=== PATIENT | female | born 1980 | race Caucasian/White ===

== ENCOUNTER 2017-09-10 17:02 | Emergency (ER) | payer OTHER ==
[2017-09-10 19:30] LABS: Urine Blood NEGATIVE (NEG); Urine Glucose NEGATIVE (NEG); Urine Protein NEGATIVE (NEG); Urine pH 7.5 (5.0-7.0)
[2017-09-10] MEDS ORDERED: NA CHLORIDE 0.9% 1,000 ML ONE (19:32)
[2017-09-10] MEDS ORDERED: FENTANYL CITR 100 MCG/2 ML ONE ×2 (19:32→20:53)
[2017-09-10 19:36] LABS: Absolute Lymphocytes (CBC) 2.4 K/uL (0.7-4.9); Absolute Monocytes 0.4 K/uL (0.1-1.3); Absolute Neutrophil 5.1 K/uL (1.8-8.0); Basophils % 0.5 % (0-1.3); Eosinophils % 2.7 % (0-4.4); Hematocrit 38.9 % (36.0-45.0); Lymphocytes % 29.2 % (15.3-44.8); MCH 31.6 pg (27.0-35.0); MCV 90.1 fL (80-100); MPV 10.2 fL (7.6-11.3); Monocytes % 5.2 % (3.3-12.3); RBC Red Blood Cell Count 4.31 M/uL (3.86-4.86)
[2017-09-10 19:41] LABS: Urine Bacteria <20 /HPF (<20); Urine RBC <5 /HPF (NONE SEEN)
[2017-09-10 19:42] LABS: Urine Culture Reflex Order NOT NEEDED
[2017-09-10 19:44] LABS: Potassium 3.4 mEq/L (3.6-5.0)
[2017-09-10 19:50] LABS: Albumin 4.9 g/dL (3.2-5.5); Bilirubin Direct 0.1 mg/dL (0-0.2); Bilirubin Total 1.1 mg/dL (0.3-1.2); Protein, Total 7.9 g/dL (6.0-8.3)
--- NOTE | 2017-09-10 20:24 | RAD REPORT ---
EXAM DESCRIPTION: US - Abdomen Exam Limited - 09/10/2017 7:43 pm CLINICAL HISTORY: Right upper quadrant pain COMPARISON: November 2014 FINDINGS: No gallstones, sludge or other abnormalities within the gallbladder lumen. There is no wal l thickening or pericholecystic fluid. No common duct stone or biliary tree dilatation identified. IMPRESSION: Normal gallbladder and biliary tree ultrasound.
--- NOTE | 2017-09-10 21:07 | RAD REPORT ---
EXAM DESCRIPTION: CT - Stone Protocol - 09/10/2017 8:45 pm CLINICAL HISTORY: Right-sided abdominal pain, right upper quadrant pain COMPARISON: None. TECHNIQUE: Axial 5 mm thick images were obtained without oral or IV contrast. The [id number] span s the entirety of the system including uppermost abdomen and lung bases. All CT scans are performed using dose optimization technique as appropriate and may include automated exposure control or mA/KV adjustment according to patient size. FINDINGS: No hydronephrosis is present and no obstructing ureteral calculi. No suspicious renal mass es. Isodense masses and pyelonephritis are not excluded on a stone protocol CT scan. No urinary bladd er suspicious finding. Uterus and ovaries show no suspicious findings. A 2 centimeter right ovarian c yst is present not regarded as significant. Imaged portions of the liver, spleen and pancreas show no suspicious findings on non-contrast imaging . No gallbladder or biliary tree abnormality identified. Gallstones can be occult. No adrenal abnorma lity. No suspicious bowel findings. No appendicitis. No mass or bulky lymphadenopathy. A small fat only umbilical hernia present. No free air, free fluid or inflammatory stranding. No significant bony abnormality. IMPRESSION: Noncontrast CT abdomen and pelvis examination shows no significant or suspicious finding . Isodense masses and pyelonephritis are not excluded on stone protocol technique.Gallstones can also b e occult on CT imaging.
--- NOTE | 2017-09-10 21:13 | ER ---
Nurse's Notes [facility] Name: Fidel Ochoa Age: 37 yrs Sex: Female : 1980 Arrival Date: 09/10/2017 Time: 17:03 Bed 20 Private MD: Diagnosis: Lower abdominal pain, unspecified;Other ovarian cysts Presentation: 09/10 17:39 Presenting complaint: Patient states: Intermittent dull RUQ pain x 1 month, over last 2 hb days pain has become constant. Also c/o nausea since noon today. Transition of care: patient was not received from another setting of care. Onset of symptoms is unknown. Initial Sepsis Screen: Does the patient meet any 2 criteria? No. Patient's initial sepsis screen is negative. Does the patient have a suspected source of infection? No. Patient's initial sepsis screen is negative. Care prior to arrival: Tylenol at 1530. 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 - Social history:: Smoking status: Patient/guardian denies using tobacco. Screenin:55 Abuse screen: Denies threats or abuse. Nutritional screening: No deficits noted. tw2 Tuberculosis screening: No symptoms or risk factors identified. Fall Risk None identified. Assessment: 18:53 General: Appears uncomfortable, slender, well groomed, Behavior is calm, cooperative, tw2 appropriate for age. Pain: Complains of pain in right upper quadrant and right lower quadrant. Neuro: Level of Consciousness is awake, alert, obeys commands, Oriented to person, place, time, situation. Cardiovascular: Denies chest pain, shortness of breath, Heart tones S1 S2 Capillary refill < 3 seconds Patient's skin is warm and dry. Respiratory: Airway is patent Respiratory effort is even, unlabored, Respiratory pattern is regular, symmetrical, Breath sounds are clear bilaterally. GI: Abdomen is flat, Bowel sounds present X 4 quads. Abd is soft X 4 quads Reports lower abdominal pain, upper abdominal pain, intolerance of fluids, intolerance of food, nausea. : Reports pain in right flank(s). EENT: No signs and/or symptoms were reported regarding the EENT system. Derm: No signs and/or symptoms reported regarding the dermatologic system. Skin is intact, is healthy with good turgor, Skin temperature is warm. Musculoskeletal: Range of motion: intact in all extremities. 19:30 Reassessment: Patient appears in no apparent distress at this time. No changes from jd3 previously documented assessment. Patient and/or family updated on plan of care and expected duration. Pain level reassessed. Patient is alert, oriented x 3, equal unlabored respirations, skin warm/dry/pink. 20:30 Reassessment: Patient appears in no apparent distress at this time. No changes from jd3 previously documented assessment. Patient and/or family updated on plan of care and expected duration. Pain level reassessed. Patient is alert, oriented x 3, equal unlabored respirations, skin warm/dry/pink. 21:30 Reassessment: Patient appears in no apparent distress at this time. No changes from jd3 previously documented assessment. Patient and/or family updated on plan of care and expected duration. Pain level reassessed. Patient is alert, oriented x 3, equal unlabored respirations, skin warm/dry/pink. Vital Signs: 17:40 BP 120 / 82; Pulse 76; Resp 18; Temp 98.1; Pulse Ox 98% on R/A; Weight 65.32 kg; Height hb 5 ft. 6 in. (167.64 cm); Pain 8/10; 18:56 BP 119 / 78; Pulse 63; Resp 17; Pulse Ox 100% on R/A; tw2 19:30 BP 117 / 95; Pulse 65; Resp 17 S; Pulse Ox 100% on R/A; Pain 8/10; jd3 20:32 BP 127 / 95; Pulse 61; Resp 17 S; Pulse Ox 100% on R/A; Pain 8/10; jd3 21:33 BP 127 / 92; Pulse 61; Resp 17 S; Pulse Ox 100% on R/A; Pain 6/10; jd3 17:40 Body Mass Index 23.24 (65.32 kg, 167.64 cm) hb ED Course: 17:03 Patient arrived in ED. al2 17:40 Triage completed. hb 17:41 Arm band placed on right wrist. hb 18:29 Noemy Nunez FNP-C is PHCP. snw 18:29 Kee Wick MD is Attending Physician. snw 18:30 Bed in low position. Call light in reach. Pulse ox on. NIBP on. Warm blanket given. tw2 18:50 No provider procedures requiring assistance completed. Inserted saline lock: 22 gauge tw2 in right antecubital area, using aseptic technique. Blood collected. 18:51 Ling Denney RN is Primary Nurse. tw2 19:00 Report given to MIKE Noel. tw2 19:43 US Abdomen Limited In Process Unspecified. EDMS 20:45 CT Stone Protocol In Process Unspecified. EDMS 21:18 CT completed. Patient tolerated procedure well. Patient moved to CT via wheelchair. kw1 Patient moved back from CT. 21:47 IV discontinued, intact, bleeding controlled, No redness/swelling at site. Pressure jd3 dressing applied. Administered Medications: 19:52 Drug: NS 0.9% 1000 ml Route: IV; Rate: 125 ml/hr; Site: right antecubital; jd3 21:47 Follow up: Response: No adverse reaction; IV Status: Order to discontinue infusion; IV jd3 Intake: 300ml 19:52 Drug: fentaNYL (PF) 25 mcg Route: IVP; Site: right antecubital; jd3 20:55 Follow up: Response: No adverse reaction; Pain is unchanged, physician notified jd3 20:54 Drug: fentaNYL (PF) 25 mcg Route: IVP; Site: right antecubital; jd3 21:32 Follow up: Response: No adverse reaction; Pain is decreased jd3 21:31 Drug: TORadol 30 mg Route: IVP; Site: right antecubital; jd3 21:32 Follow up: Response: Medication administered at discharge. jd3 Intake: 21:47 IV: 300ml; Total: 300ml. jd3 Outcome: 21:12 Discharge ordered by . snw 21:45 Discharged to home ambulatory. jd3 21:45 Condition: stable 21:45 Discharge instructions given to patient, Instructed on discharge instructions, follow up and referral plans. medication usage, Demonstrated understanding of instructions, follow-up care, medications, Prescriptions given X 2. 21:48 Patient left the ED. jd3 Signatures: Dispatcher [employer] EDMN Noemy Nunez, FUNDS TRANSFER CLERK-C FUNDS TRANSFER CLERK-Csnw Jeanne Munoz RN RN Ling Denney RN RN tw2 Griffin Alexandra RN RN jd3 Smitha Jc1 Jackeline Ro Corrections: (The following items were deleted from the chart) 20:55 20:32 Pulse 61bpm; Resp 17bpm; Spontaneous; Pulse Ox 100% RA; Pain 12/07; jd3 jd3
--- NOTE | 2017-09-10 21:13 | EDPHYS ---
Physician Documentation [facility] Name: Fidel Ochoa Age: 37 yrs Sex: Female : 1980 Arrival Date: 09/10/2017 Time: 17:03 Bed 20 Private MD: ED Physician Kee Wick HPI: 09/10 19:20 This 37 yrs old Female presents to ER via Ambulatory with complaints of snw Abdominal Pain, Fever. 19:20 The patient presents with abdominal pain in the upper abdomen, in the right upper snw quadrant. Onset: The symptoms/episode began/occurred gradually, 1 month(s) ago, and became worse 2 day(s) ago, and became persistent. The symptoms do not radiate. Associated signs and symptoms: Pertinent positives: fever, nausea. The symptoms are described as constant. Severity of pain: At its worst the pain was moderate yesterday. The patient has not experienced similar symptoms in the past. appt for Wed at the [facility]. 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 - Social history:: Smoking status: Patient/guardian denies using tobacco. ROS: 19:19 Constitutional: Negative for fever, chills, and weight loss, Eyes: Negative for injury, snw pain, redness, and discharge, ENT: Negative for injury, pain, and discharge, Neck: Negative for injury, pain, and swelling, Cardiovascular: Negative for chest pain, palpitations, and edema, Respiratory: Negative for shortness of breath, cough, wheezing, and pleuritic chest pain, Back: Negative for injury and pain, : Negative for injury, bleeding, discharge, and swelling, MS/Extremity: Negative for injury and deformity, Skin: Negative for injury, rash, and discoloration, Neuro: Negative for headache, weakness, numbness, tingling, and seizure, Psych: Negative for depression, anxiety, suicide ideation, homicidal ideation, and hallucinations. 19:19 Abdomen/GI: Positive for abdominal pain, nausea. Exam: 19:18 Constitutional: This is a well developed, well nourished patient who is awake, alert, snw and in no acute distress. Head/Face: Normocephalic, atraumatic. Eyes: Pupils equal round and reactive to light, extra-ocular motions intact. Lids and lashes normal. Conjunctiva and sclera are non-icteric and not injected. Cornea within normal limits. Periorbital areas with no swelling, redness, or edema. ENT: Nares patent. No nasal discharge, no septal abnormalities noted. Tympanic membranes are normal and external auditory canals are clear. Oropharynx with no redness, swelling, or masses, exudates, or evidence of obstruction, uvula midline. Mucous membranes moist. Neck: Trachea midline, no thyromegaly or masses palpated, and no cervical lymphadenopathy. Supple, full range of motion without nuchal rigidity, or vertebral point tenderness. No Meningismus. Chest/axilla: Normal chest wall appearance and motion. Nontender with no deformity. No lesions are appreciated. Cardiovascular: Regular rate and rhythm with a normal S1 and S2. No gallops, murmurs, or rubs. Normal PMI, no JVD. No pulse deficits. Respiratory: Lungs have equal breath sounds bilaterally, clear to auscultation and percussion. No rales, rhonchi or wheezes noted. No increased work of breathing, no retractions or nasal flaring. Back: No spinal tenderness. No costovertebral tenderness. Full range of motion. Skin: Warm, dry with normal turgor. Normal color with no rashes, no lesions, and no evidence of cellulitis. MS/ Extremity: Pulses equal, no cyanosis. Neurovascular intact. Full, normal range of motion. Neuro: Awake and alert, GCS 15, oriented to person, place, time, and situation. Cranial nerves II-XII grossly intact. Motor strength 5/5 in all extremities. Sensory grossly intact. Cerebellar exam normal. Normal gait. Psych: Awake, alert, with orientation to person, place and time. Behavior, mood, and affect are within normal limits. 19:18 Abdomen/GI: Inspection: abdomen appears normal, Bowel sounds: normal, Palpation: moderate abdominal tenderness, severe abdominal tenderness, in the anterior aspect of right lateral abdomen and right upper quadrant. 19:20 Abdomen/GI: Indicators: Simpson's sign is positive. snw Vital Signs: 17:40 BP 120 / 82; Pulse 76; Resp 18; Temp 98.1; Pulse Ox 98% on R/A; Weight 65.32 kg; Height hb 5 ft. 6 in. (167.64 cm); Pain 8/10; 18:56 BP 119 / 78; Pulse 63; Resp 17; Pulse Ox 100% on R/A; tw2 19:30 BP 117 / 95; Pulse 65; Resp 17 S; Pulse Ox 100% on R/A; Pain 8/10; jd3 20:32 BP 127 / 95; Pulse 61; Resp 17 S; Pulse Ox 100% on R/A; Pain 8/10; jd3 21:33 BP 127 / 92; Pulse 61; Resp 17 S; Pulse Ox 100% on R/A; Pain 6/10; jd3 17:40 Body Mass Index 23.24 (65.32 kg, 167.64 cm) hb MDM: 18:51 Patient medically screened. snw 19:20 Data reviewed: vital signs, nurses notes. Data interpreted: Pulse oximetry: on room air snw is 100 %. Interpretation: normal. Counseling: I had a detailed discussion with the patient and/or guardian regarding: the historical points, exam findings, and any diagnostic results supporting the discharge/admit diagnosis, lab results, radiology results. 20:45 ED course: Pt to rad per WC for CT abd/pelvis. snw 09/10 18:32 Order name: Urine Culture snw 09/10 18:32 Order name: Urine Microscopic Only; Complete Time: 19:57 snw 09/10 19:18 Order name: Basic Metabolic Panel; Complete Time: 19:57 snw 09/10 19:18 Order name: CBC with Diff; Complete Time: 19:57 snw 09/10 19:18 Order name: Hepatic Function; Complete Time: 19:57 snw 09/10 19:18 Order name: Lipase; Complete Time: 19:57 snw 09/10 19:18 Order name: US Abdomen Limited; Complete Time: 20:25 snw 09/10 19:23 Order name: Urine Dipstick--Ancillary (enter results); Complete Time: 19:32 mt 09/10 19:23 Order name: Urine --Ancillary (enter results); Complete Time: 19:32 mt 09/10 20:25 Order name: CT Stone Protocol; Complete Time: 21:10 snw 09/10 18:32 Order name: Urine Test (obtain specimen); Complete Time: 18:51 snw 09/10 18:32 Order name: Urine Dipstick-Ancillary (obtain specimen); Complete Time: 18:51 snw 09/10 19:18 Order name: IV Saline Lock; Complete Time: 19:24 snw 09/10 19:18 Order name: Labs collected and sent; Complete Time: 19:29 snw Administered Medications: 19:52 Drug: NS 0.9% 1000 ml Route: IV; Rate: 125 ml/hr; Site: right antecubital; jd3 21:47 Follow up: Response: No adverse reaction; IV Status: Order to discontinue infusion; IV jd3 Intake: 300ml 19:52 Drug: fentaNYL (PF) 25 mcg Route: IVP; Site: right antecubital; jd3 20:55 Follow up: Response: No adverse reaction; Pain is unchanged, physician notified jd3 20:54 Drug: fentaNYL (PF) 25 mcg Route: IVP; Site: right antecubital; jd3 21:32 Follow up: Response: No adverse reaction; Pain is decreased jd3 21:31 Drug: TORadol 30 mg Route: IVP; Site: right antecubital; jd3 21:32 Follow up: Response: Medication administered at discharge. jd3 Disposition: 09/11 10:52 Co-signature as Attending Physician, Kee Wick MD. Chart complete. Chart complete. rn Disposition: 09/10/17 21:12 Discharged to Home. Impression: Lower abdominal pain, unspecified, Other ovarian cysts. - Condition is Stable. - Discharge Instructions: Hypertension, Ovarian Cyst, Abdominal Pain, Women. - Prescriptions for Diclofenac Sodium 75 mg Oral Tablet Sustained Release - take 1 tablet by ORAL route 2 times per day; 30 tablet. orphenadrine citrate 100 mg Oral Tablet Sustained Release - take 1 tablet by ORAL route 2 times per day As needed; 20 tablet. - Medication Reconciliation Form, Thank You Letter, Antibiotic Education, Prescription Opioid Use form. - Follow up: Private Physician; When: 2 - 3 days; Reason: Recheck today's complaints, Continuance of care, Re-evaluation by your physician. Follow up: Emergency Department; When: As needed; Reason: Worsening of condition. Signatures: Dispatcher [facility] EDSC Noemy Nunez, ENGAGEMENT LIAISON-C ENGAGEMENT LIAISON-Csnw Kee Wick MD MD rn Baxter, Heather, RN RN Griffin Rainey RN RN jd3 Corrections: (The following items were deleted from the chart) 09/10 21:48 21:12 09/10/2017 21:12 Discharged to Home. Impression: Lower abdominal pain, jd3 unspecified; Other ovarian cysts. Condition is Stable. Forms are Medication Reconciliation Form, Thank You Letter, Antibiotic Education, Prescription Opioid Use. Follow up: Private Physician; When: 2 - 3 days; Reason: Recheck today's complaints, Continuance of care, Re-evaluation by your physician. Follow up: Emergency Department; When: As needed; Reason: Worsening of condition. snw
[2017-09-10] MEDS ORDERED: KETOROLAC 30 MG/ML INJ ONE ×2 (21:28→21:29)
[2017-09-10 22:53] VITALS: TEMP 98.1
[2017-09-10 22:54] VITALS: O2SAT 100
[2017-09-10 22:58] VITALS: BP 127/92
== END 2017-09-10 21:48 | disposition home or self-care (01) ==
LOC: ER 17:02
DX: N83.299 Other ovarian cyst, unspecified side (principal); Z88.8 Allergy status to other drugs, medicaments and biological substances
CPT/HCPCS: 36415; 74176; 76377; 76705; 80048; 80076; 81003; 81015; 81025; 83690; 85025; 87086; 87088; 96361; 96374; 96375; 99284; J3010; J7030